=== PATIENT | male | born 1960 | race Caucasian/White ===

== ENCOUNTER 2018-01-21 13:52 | Emergency (ER) | payer MEDICARE, MEDICAID ==
[~2018-01-21] VITALS: Ht 175.3 cm; Wt 95.5 kg
[2018-01-21 13:59] VITALS: Ht 175.3 cm; Wt 95.5 kg
[2018-01-21] MEDS ORDERED: LIPITOR20 MG PO (14:02)
[2018-01-21] MEDS ORDERED: BUSPAR 15 MG TA15 MG PO (14:02)
[2018-01-21] MEDS ORDERED: SPIRIVA18 MCG INH (14:02)
[2018-01-21] MEDS ORDERED: AMITRIPTYLINE H50 MG PO (14:02)
[2018-01-21] MEDS ORDERED: PRO AIR HFA PO (14:03)
[2018-01-21] MEDS ORDERED: NORCO 10-325 TA1 TAB PO (14:03)
[2018-01-21] MEDS ORDERED: CYCLOBENZAPRINE10 MG PO (14:04)
[2018-01-21] MEDS ORDERED: AUGMENTIN 875-11 TAB PO (14:04)
[2018-01-21] MEDS ORDERED: FLUTICASONE PRO16 GM NASAL (14:05)
[2018-01-21 17:51] VITALS: BP 121/73
== END 2018-01-21 18:45 | disposition other institution (70) ==
LOC: D.ER 13:52
DX: H49.20 Sixth [abducent] nerve palsy, unspecified eye (principal); I10 Essential (primary) hypertension; J44.9 Chronic obstructive pulmonary disease, unspecified; F17.200 Nicotine dependence, unspecified, uncomplicated

== ENCOUNTER 2019-03-07 20:04 | Emergency (ER) | payer OTHER, MEDICARE, MEDICAID ==
[~2019-03-07] VITALS: Ht 175.3 cm; Wt 101.8 kg
[~2019-03-07 20:04] MED LIST: AMITRIPTYLINE H50 MG PO; AUGMENTIN 875-11 TAB PO; BUSPAR 15 MG TA15 MG PO; CYCLOBENZAPRINE10 MG PO; FLUTICASONE PRO16 GM NASAL; LIPITOR20 MG PO; NORCO 10-325 TA1 TAB PO; PRO AIR HFA PO; SPIRIVA18 MCG INH
[2019-03-07 20:40] VITALS: Ht 175.3 cm; Wt 101.8 kg
[2019-03-07 21:27] LABS: BASOPHILS 0.1 % (0-2); EOSINOPHILS 1.9 % (0-7); HEMATOCRIT 50.5 % (42.0-54.0); HEMOGLOBIN 17.2 g/dL (13.5-17.5); IMMATURE GRANULOCYTES 0.2 % (0-5); LYMPHOCYTES 15.7 % (15-50); MCH 31.1 pg (26.0-34.0); MCHC 34.1 g/dL (31.0-37.0); MCV 91.3 fL (80.0-100.0); MEAN PLATELET VOLUME 10.3 fL (7.4-10.4); MONOCYTES 7.1 % (2-11); RBC 5.53 10x6/uL (4.20-6.10); RDW 13.3 % (11.5-14.5); WBC 14.7 10x3/uL (4.8-10.8)
[2019-03-07 21:28] LABS: PLATELET COUNT 222 10x3/uL (130-400)
[2019-03-07 21:36] LABS: APTT 25.1 SECONDS (22.8-39.4); CALC OSMOLALITY 276 mosm/kg (275-300); CALCIUM 9.5 mg/dL (8.5-10.1); CARBON DIOXIDE 30.7 mmol/L (21.0-32.0); CHLORIDE - SERUM 99 mmol/L (98-107); GLUCOSE 144 mg/dL (74-106); INR 0.98 (0.85-1.17); PROTIME 12.5 SECONDS (11.6-15.0); SODIUM 138 mmol/L (136-145); UREA NITROGEN 7 mg/dL (7-18); eGFR NON AFRICAN AMERICAN 81 mL/min (90-120)
[2019-03-07 21:42] LABS: ALBUMIN 3.7 g/dL (3.4-5.0); ALKALINE PHOSPHATASE 147 U/L (46-116); ALT (SGPT) 39 U/L (10-68); BILIRUBIN - TOTAL 0.52 mg/dL (0.2-1.3); LIPASE 100 U/L (73-393); PROTEIN - SERUM 8.1 g/dL (6.4-8.2)
[2019-03-07 23:19] LABS: APPEARANCE CLEAR (CLEAR); BILIRUBIN NEGATIVE (NEGATIVE); COLOR YELLOW (YELLOW); GLUCOSE NEGATIVE (NEGATIVE); KETONE NEGATIVE (NEGATIVE); NITRITE NEGATIVE (NEGATIVE); PROTEIN TRACE mg/dL (NEGATIVE); SPECIFIC GRAVITY 1.015 (1.005-1.020); UROBILINOGEN NORMAL (NORMAL)
[2019-03-07 23:30] LABS: UDS - AMPHET NEGATIVE QUAL (NEGATIVE); UDS - BARB NEGATIVE QUAL (NEGATIVE); UDS - BENZO POSITIVE QUAL (NEGATIVE); UDS - COCAINE NEGATIVE QUAL (NEGATIVE); UDS - OPIATE POSITIVE QUAL (NEGATIVE); UDS - PCP NEGATIVE QUAL (NEGATIVE); UDS - THC NEGATIVE QUAL (NEGATIVE)
[2019-03-07] MEDS ORDERED: DICLOFENAC SODI50 MG PO (23:31)
[2019-03-07] MEDS ORDERED: CYCLOBENZAPRINE10 MG PO (23:31)
[2019-03-07 23:55] VITALS: BP 112/72
== END 2019-03-07 23:55 | disposition home or self-care (01) ==
LOC: D.ER 20:04
PROVIDERS: Family Medicine
DX: M54.2 Cervicalgia (principal); V89.2XXA Person injured in unspecified motor-vehicle accident, traffic, initial encounter; Y93.9 Activity, unspecified; Y92.9 Unspecified place or not applicable; M54.9 Dorsalgia, unspecified; M25.552 Pain in left hip; M25.562 Pain in left knee; R10.9 Unspecified abdominal pain; E78.5 Hyperlipidemia, unspecified; J44.9 Chronic obstructive pulmonary disease, unspecified; Z72.0 Tobacco use